=== PATIENT | male | born 1970 | race African-American/Black ===

== ENCOUNTER 2024-11-08 13:01 | Emergency (ER) | payer SELFPAY ==
[2024-11-08] VITALS (10 sets, daily range): BP systolic 99–118; BP diastolic 59–84; BMI 23.6
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
[2024-11-08] MEDS: ZOFRAN 4 MG IV (13:33)
[2024-11-08 13:36] LABS: Hematocrit 29.7 % (39.0-52.0); Hemoglobin 9.2 g/dL (13.0-18.0); Mean Corpuscular Hgb 22.2 pg (27.0-31.0); Mean Corpuscular Volume 71.6 fL (80.0-94.0); Mean Platelet Volume 8.9 fL (7.4-10.4); Platelet Count 415 10^3/uL (130-400); Red Blood Cell Count 4.15 10^6/uL (4.70-6.10); Red Cell Dist. Width 14.8 % (11.5-14.5); White Blood Cell Count 5.3 10^3/uL (4.8-10.8)
[2024-11-08 13:53] LABS: ALT (SGPT) < 10 U/L (0-50); AST (SGOT) 9 U/L (17-59); Albumin 3.5 g/dl (3.5-5.0); Alkaline Phosphatase 121 U/L (38-126); Blood Urea Nitrogen 15 mg/dl (9-20); Calcium 8.2 mg/dl (8.4-10.2); Carbon Dioxide 25 mmol/L (22-30); Chloride 96 mmol/L (98-107); Glucose 92 mg/dl (70-99); Potassium 4.1 mmol/L (3.5-5.1); Sodium 130 mmol/L (135-145); Total Bilirubin 0.6 mg/dl (0.2-1.3); Total Protein 6.7 g/dl (6.3-8.2); eGFR > 60.00
[2024-11-08 14:11] LABS: Troponin I < 0.012 ng/ml
[2024-11-08 14:28] LABS: % Basophils 0.9 % (0-2); % Eosinophils 0.9 % (0-6); % Immature Granulocytes 0.2 % (0-0.5); % Lymphocytes 42.2 % (20.5-51.1); % Monocytes 14.9 % (1.7-9.3); % Neutrophils 40.9 % (42.2-75.2); Absolute Basophils 0.1 10^3/uL (0-0.2); Absolute Eosinophils 0.1 10^3/uL (0-0.7); Absolute Lymphocytes 2.2 10^3/uL (1.2-3.4); Absolute Monocytes 0.8 10^3/uL (0.1-0.6); Absolute Neutrophils 2.2 10^3/uL (1.4-6.5); Nucleated Red Blood Cells % 0 % (-)
[2024-11-08 16:15] LABS: Troponin I < 0.012 ng/ml
== END 2024-11-08 18:51 ==
LOC: EMR 13:01
PROVIDERS: Emergency Medicine; Physician Assistant Medical; EMERGENCY PHYSICIAN Emergency Medicine
DX: R07.89 Other chest pain (principal); F11.10 Opioid abuse, uncomplicated; R11.0 Nausea; F17.210 Nicotine dependence, cigarettes, uncomplicated
CPT/HCPCS: 99285; 96374; 71046; 71275; 74174; 80053; 84484; 85025; 93005; Q9967